=== PATIENT | male | born 1980 | race Caucasian/White ===

== ENCOUNTER 2016-08-17 15:38 | Emergency (ER) | payer BC ==
[~2016-08-17] VITALS: Ht 182.9 cm; Wt 102.7 kg
[2016-08-17] MEDS ORDERED: TOBREX5 ML LEFT EYE (17:04)
[2016-08-17 17:22] VITALS: BP 154/97
== END 2016-08-17 17:23 | disposition home or self-care (01) ==
LOC: EME 15:38
DX: S05.02XA Injury of conjunctiva and corneal abrasion without foreign body, left eye, initial encounter (principal); Y99.0 Civilian activity done for income or pay; W22.8XXA Striking against or struck by other objects, initial encounter
CPT/HCPCS: 99281; 99283